=== PATIENT | female | born 1970 | race Caucasian/White ===

== ENCOUNTER 2016-04-21 16:32 | Emergency (ER) | payer OTHER ==
[~2016-04-21] VITALS: Ht 170.2 cm; Wt 91.5 kg
[~2016-04-21 16:32] MED LIST: ASPI325T45 PO; CYM30 PO; FLX/5 PO
[2016-04-21 16:38] VITALS: TEMP 36.8; Ht 170.2 cm; Wt 91.5 kg
[2016-04-21] MEDS ORDERED: CYM20 PO (17:24)
[2016-04-21] MEDS ORDERED: NAPR500T3 PO (17:24)
[2016-04-21] MEDS ORDERED: PRED50TA PO (18:02)
--- NOTE | 2016-04-21 18:02 | EMERGENCY ROOM VISIT NOTE ---
History First contact with patient: 17:04 Chief Complaint: BACK PAIN Stated Complaint: LOW RIGHT BACK/THIGH PAIN History of Present Illness The patient is a 45 year old female who presents to the Emergency Room via private vehicle with complaints of "low right back/thigh pain". She states that in January she began with pain in the right thigh region and an ache in the right leg that progressed distally to the outside ankle. She has seen Dr. Mancilla, of [facility]. The patient now states that earlier today while moving to a sitting position she developed pain in the right buttock that radiates down to the right foot. She states that she heard a snap in her lower back/thigh. She rates the pain as a 6-7/10. She has had steroid injections which have lasted 2 days for relief, and just finished a Medrol Dosepak. She has seen her family doctor who is in [place] was also provided her a steroid shot which only lasted for a few days. She has tried physical therapy with minimal relief. She notes that the right leg does feel slightly weak, but her legs have not given out on her. She is able to axial load. She denies any numbness or tingling in her genital region. She denies any bowel or bladder incontinence. Review of Systems A complete 6-point Review of Systems was discussed with the patient, with pertinent positives and negatives listed in the History of Present Illness. All remaining Review of Systems questions can be considered negative unless otherwise specified. Past Medical/Surgical History Medical Problems: (1) HTN (hypertension) (2) left foot surgery Family History Cancer Diabetes mellitus Heart disease Hypertension Lung disease Diabetes, heart disease, high blood pressure, cancer, lung disease,, but her disease, kidney disease or stones. Social History Smoking Status: Current Every Day Smoker Marital Status: in relationship Housing Status: lives with significant other Social History: Patient is currently employed, she admits to alcohol and tobacco use. Current/Historical Medications Scheduled Duloxetine HCl (Duloxetine HCl), 20 MG PO DAILY Hydrochlorothiazide (Hydrochlorothiazide), 25 MG PO DAILY Naproxen (Naproxen), 500 MG PO BID Prednisone (Prednisone), 50 MG PO DAILY Scheduled PRN Cyclobenzaprine HCl (Cyclobenzaprine HCl), 10 MG PO BID PRN for Pain Omeprazole (Prilosec), 40 MG PO DAILY PRN for Acid Reflux Oxycodone Hcl (Oxycodone Hcl), 10 MG PO TID PRN for Pain Allergies Coded Allergies: Hydromorphone (Verified Allergy, Intermediate, RASH, ITCHING, 04/21/16) Morphine (Verified Allergy, Intermediate, RASH, NAUSEA, 04/21/16) Oxycodone (Unverified Allergy, Mild, rash & nausea, 04/21/16) Physical Exam Vital Signs Date Time Temp Pulse Resp B/P Pulse Ox O2 Delivery O2 Flow Rate FiO2 04/21/16 18:05 93 18 154/121 93 Room Air 04/21/16 16:38 36.8 108 18 173/126 98 Room Air Physical Exam VITAL SIGNS - Vital signs and nursing notes were reviewed. Patient is noted to be hypertensive at 173/126. She is afebrile. She is tachycardic at a rate of 10 8 bpm. She is saturating well on room air at 98%. GENERAL -45-year-old female appearing her stated age who is in no acute distress. The patient is nontoxic in appearance. The patient is able to axial load without difficulty. Patient is standing upon my entrance in the exam room. Communicates well with provider and answers questions appropriately. SKIN - Without rashes. HEAD - NC/AT. NECK - Neck with FROM. No meningeal signs. LUNGS - Chest wall symmetric without accessory muscle use, intercostals retractions, or central cyanosis. Normal vesicular breath sounds CTA B/L. No wheezes, rales, or rhonchi appreciated. CARDIAC - RRR with S1/S2. No murmur, rubs, or gallops appreciated. ABDOMEN - Abdominal contour without pulsations or visible masses. BS normoactive all four quadrants. No tenderness, palpable masses, hepatosplenomegaly, or ascites noted. MUSCULOSKELETAL: There is reversible tenderness in the right gluteal region extending down the right thigh. This is consistent with sciatica and lumbar radiculopathy. No appreciable weakness. EXTREMITIES - No clubbing or peripheral cyanosis. No pretibial edema present. + 5/5 strength noted in UE/LE bilaterally. Patient is neurovascularly intact in her tremors. NEUROLOGIC -Sensory intact to light touch throughout. Unable to elicit bilateral reflexes. These are symmetric. PSYCH - Pt is very pleasant and interacts well with examiner. Medical Decision & Procedures Medications Administered Medications (Trade) Dose Ordered Sig/Mckenzie Route Start Time Stop Time Status Last Admin Dose Admin Prednisone (PredniSONE TAB) 50 mg NOW STAT PO 04/21/16 17:35 04/21/16 17:42 DC 04/21/16 18:03 50 MG Medical Decision Patient was seen and evaluated as above. After obtaining a thorough history and physical examination it appears that the patient's symptoms are consistent with that of lumbar radiculopathy. The patient is experiencing pain seems to run along the sciatic nerve. I believe this is likely secondary to a positional change that occurred earlier today. This seemed to be exacerbated her symptoms. I'm not able to appreciate any neurologic deficit or weakness. Nothing appears to be symmetric. There is no bowel or bladder incontinence, numbness or tingling in her genital region or appreciable leg weakness. I do not suspect any emergent or surgical nature to the patient's symptoms at this time. I would the patient is followed up in the outpatient setting but feel she may benefit from a different course of steroids. She indicated that she had pain medicine at home that was prescribed her previously that she may take. She was given one prednisone tablet here 50 mg and 4 were sent to her pharmacy. She is to take this for a total of 5 days. She is instructed to follow-up with her family doctor regarding today's visit as well as her orthopedic surgeon to schedule follow-up. I did provide her with the number for orthopedic back specialist/loan servicing specialist that she may also call to schedule follow-up. She was educated on worrisome symptoms in which to return. She was educated upon management of today's findings. She had questions answered prior to discharge and was discharged home in good condition. She did not want anything for pain while here in the emergency department as she was driving home.. She is to follow-up with her family doctor regarding her hypertensive findings. In the evaluation and treatment of this patient following differential diagnoses were entertained: Cauda equina syndrome, lumbar strain, low back pain with radiculopathy, among others. Impression Primary Impression: Back strain Additional Impression: Lumbar radiculopathy, right Departure Information Dispostion Home / Self-Care Condition GOOD Prescriptions Prednisone (Prednisone) 50 Mg Tab 50 MG PO DAILY for 4 Days, #4 TAB Prov: Leif Crespo PA-C 04/21/16 Referrals MIKE CALDERON D.O. (PCP) Rito Srinivasan, DO Patient Instructions A Signature Page, My [facility] Additional Instructions You have been treated in the Emergency Department for Back Pain. You have been prescribed Prednisone 50 mg to be taken orally once a day for the next 5 (4 day prescription) days. This is an anti-inflammatory medicine to be used to help minimize your symptoms. You should take the COMPLETE course of the medication. You may take your pain medication that has been previously prescribed. This is a narcotic medication. You cannot drive or consume alcohol while on this medicine. This medicine should only be used for pain that cannot be controlled with [id number] pain medicines. For pain control, you can use the following arxn-iof-fyjftbk medicines (if >12 yo): - Regular strength (325mg/tab) Tylenol (acetaminophen) 2 tabs every 4-6 hours as needed. Do not exceed 12 tablets in a 24 hour period. Avoid taking more than 4 grams (4000 mg) of Tylenol per day. This includes any other sources of acetaminophen you may take on a regular basis. If this is an acute injury, ice can be applied to the area of pain for the first 3 days to help decrease pain and inflammation. After the first 3 days, a heating pad can be used over the area for continued soothing relief. You should schedule a follow-up appointment in 2-3 days with your Primary Care Provider for further evaluation and treatment of your back pain. Please call your family doctor soon as possible to schedule an appointment for further evaluation and management. Please follow up with your family doctor regarding your blood pressure. It was elevated today at 173/126. I listed the number for the loan servicing specialist if your family doctor would like to send you to him. Please call this number soon as possible for further evaluation and management. Return to the Emergency Department if your current symptoms worsen despite treatment course outlined above, or if you develop any of the following symptoms : intractable pain despite aforementioned treatment course, loss of control of your bowel or bladder, numbness or tingling in your groin, or development of a fever. Please return the emergency department with any new/concerning symptoms.
[2016-04-21 18:05] VITALS: BP 154/121; PULSE 93; O2SAT 93
[2016-09-27] MEDS ORDERED: FLX10 PO (17:24)
[2016-09-27] MEDS ORDERED: OMEP40CA41 PO (17:24)
== END 2016-04-21 18:10 | disposition home or self-care (01) ==
LOC: C.EDB 16:33 → C.EDD 18:10
DX: S39.012A Strain of muscle, fascia and tendon of lower back, initial encounter (principal); M54.16 Radiculopathy, lumbar region; X50.9XXA Other and unspecified overexertion or strenuous movements or postures, initial encounter; F17.200 Nicotine dependence, unspecified, uncomplicated; I10 Essential (primary) hypertension

== ENCOUNTER → 2016-05-13 | Outpatient (CLI) | payer OTHER ==
[~2016-05-13] MED LIST changes: -ASPI325T45 PO; +CYM20 PO; -CYM30 PO; +CZR50 PO; -FLX/5 PO; +FLX10 PO; +HYDR25TA5 PO; +NAPR500T3 PO; +OMEP40CA41 PO; +OXYC-164 PO
--- NOTE | 2016-05-13 16:22 | DIAGNOSTIC IMAGING REPORT ---
LUMBAR SPINE MRI HISTORY: Right-sided sciatica. TECHNIQUE: Multiplanar multisequence MRI of the lumbar spine was performed without the use of contrast. COMPARISON: Lumbar spine 03/20/2016. FINDINGS: For the purpose of the report the L5-S1 disc space will be located on axial image of . Alignment is intact. No fracture or subluxation. Mild disc desiccation at L3-L4 and L5-S1. Mild disc space narrowing at L4-L5. The conus terminates at the L2 level. Normal marrow signal intensity seen throughout the visit osseous structures. Paraspinal soft tissues are unremarkable. L1-L2: No significant central canal or neural foraminal narrowing. L2-L3: No significant central canal or neural foraminal narrowing. L3-L4: No significant central canal or neural foraminal narrowing. L4-L5: There is a 12 x 9 mm left paracentral disc extrusion which results in severe central canal narrowing and partial compression of the cauda equina. The thecal sac measures a diameter of 3 mm at this location. There is mild bilateral neural foraminal narrowing. There are associated posterior endplate osteophytes at this level. L5-S1: No significant central canal or neural foraminal narrowing. IMPRESSION: A large left paracentral disc extrusion at L4-L5 which measures 12 x 9 mm. This results in severe central canal narrowing and partial compression of the cauda equina. There are associated posterior endplate osteophytes at this level. Electronically signed by: Danis Larsen M.D. 05/13/2016 4:20 PM Dictated Date/Time: 05/13/2016 4:12 PM
== END | disposition home or self-care (01) ==
LOC: C.MRI 14:22
PROVIDERS: ATTEND Internal Medicine
DX: M54.41 Lumbago with sciatica, right side (principal); M51.26 Other intervertebral disc displacement, lumbar region; G83.4 Cauda equina syndrome

== ENCOUNTER 2016-09-27 17:25 | Emergency (ER) | payer OTHER ==
[~2016-09-27] VITALS: Ht 170.2 cm; Wt 94.6 kg
[~2016-09-27 17:25] MED LIST changes: -CZR50 PO; -HYDR25TA5 PO; -OXYC-164 PO
[2016-09-27 17:29] VITALS: TEMP 36.5; Ht 170.2 cm; Wt 94.6 kg
[2016-09-27] MEDS ORDERED: CZR50 PO (17:46)
--- NOTE | 2016-09-27 18:10 | EMERGENCY ROOM VISIT NOTE ---
ED Visit Note First contact with patient: 17:49 CHIEF COMPLAINT: Low back pain HISTORY OF PRESENT ILLNESS: This 46-year-old female patient presents to the emergency department complaining of pain in the low back which began abruptly after she experienced a fall around 4:30 PM today. Patient states she was at work sitting in a chair that broke and she landed squarely on her buttocks, then fell backwards and hit her head. She denies loss of consciousness, headache, vision changes, nausea or vomiting, neck pain. She states immediate jolting pain in her lower back that radiates up to her middle and upper back. She states recent spinal surgery in May 2016 for a lumbar spine fracture and herniated disc repair. The pain was sudden in onset, is now constant and worse with movement. The patient notes the pain as sharp, stabbing and a 7/10. The patient has taken no medications for the pain. The patient denies any loss of control of their bowel or bladder functions. There has been no leg numbness or weakness, and no change in sensation, no difficulty ambulating. No nausea or vomiting or abdominal pain. No chest pain or shortness of breath. No dysuria or increased urinary frequency. REVIEW OF SYSTEMS: A review of systems was performed with positives and pertinent negatives listed in the history of present illness. All other systems were reviewed and are negative. ALLERGIES: See chart MEDICATIONS: See chart PMH: See chart SOCIAL HISTORY: See chart PHYSICAL EXAM: VITALS: Vitals are noted on the nurse's note and reviewed by myself. Vital signs stable. GENERAL: Pleasant and cooperative, in no acute distress, nondiaphoretic, well- developed well-nourished. SKIN: The skin was without rashes, erythema, edema, or bruising. Capillary refill less than 2 seconds. NECK: Supple without nuchal rigidity. No cervical spine tenderness. No paraspinous muscle tenderness. HEART: Regular rate and rhythm without murmurs gallops or rubs. LUNGS: Clear to auscultation bilaterally without wheezes, rales or rhonchi. ABDOMEN: Positive bowel sounds x 4. Normal tympanic percussion. Soft, nontender, without masses or organomegaly. Blood sign negative. MUSCULOSKELETAL: No muscle atrophy, erythema, or edema noted of the back. There is diffuse tenderness over the thoracic and lumbar spinous processes. There is bilateral tenderness over the paraspinous muscles from T5 extending to the sacrum. There are no muscle spasms present. The patient is slow to move around with maximum tenderness with bending or twisting. Negative straight leg raise test. NEURO: Patient was alert and oriented to person place and time. Normal sensation to light and sharp touch. Deep tendon reflexes 2+ in the lower extremities. Dorsalis pedis pulse 2+ bilaterally. Strength 5/5 and equal in the bilateral lower extremities. EMERGENCY DEPARTMENT COURSE: I examined the patient. Differential diagnosis includes strain, sprain, muscle spasm, fracture, disc herniation, subluxation, damage to surgical hardware. Given her recent surgery as well as axial load type injury with extensive midline spinal tenderness, CT imaging of the thoracic and lumbar spine was ordered. Review of CT reveals no acute fractures or other abnormalities and intact surgical hardware. Patient was given Tylenol for her pain, with reported improvement. She was instructed to follow closely with her PCP, and her surgeon as needed. She was discharged home in stable condition and ambulatory. Medication Reconciliation: I attest that I have personally reviewed the patient' s current medication list. Blood pressure screening: The patient was found to have an elevated blood pressure and was referred to their primary doctor for recheck and further treatment. Problem List Medical Problems: (1) HTN (hypertension) Status: Chronic (2) left foot surgery Status: Resolved Current/Historical Medications Scheduled Hydrochlorothiazide (Hydrochlorothiazide), 25 MG PO DAILY Losartan Potassium (Losartan Potassium), 100 MG PO DAILY Scheduled PRN Cyclobenzaprine HCl (Cyclobenzaprine HCl), 10 MG PO TID PRN for Muscle Spasm Omeprazole (Prilosec), 40 MG PO DAILY PRN for Acid Reflux Oxycodone Hcl (Oxycodone Hcl), 10 MG PO Q8 PRN for Pain Allergies Coded Allergies: Hydromorphone (Verified Allergy, Intermediate, RASH, ITCHING, 04/21/16) Morphine (Verified Allergy, Intermediate, RASH, NAUSEA, 04/21/16) Oxycodone (Unverified Allergy, Mild, rash & nausea, 04/21/16) Vital Signs Date Time Temp Pulse Resp B/P (MAP) Pulse Ox O2 Delivery O2 Flow Rate FiO2 09/27/16 20:44 93 16 150/100 99 Room Air 09/27/16 17:29 36.5 106 18 174/108 97 Room Air Medications Administered Medications (Trade) Dose Ordered Sig/Mckenzie Route Start Time Stop Time Status Last Admin Dose Admin Acetaminophen (Tylenol Tab) 1,000 mg NOW STAT PO 09/27/16 18:16 09/27/16 18:19 DC 09/27/16 18:45 1,000 MG Departure Information Impression Primary Impression: Injury of back due to fall Dispostion Home / Self-Care Condition GOOD Referrals MIKE CALDERON D.O. (PCP) Patient Instructions ED Low Back Pain Injury, [facility] Additional Instructions Apply ice for 24-48 hrs, then heat to the low back. See your own doctor or an orthopedist in 7 days if you are not improving. Ibuprofen 600 mg and Tylenol 1000 mg every 8 hours if needed for the pain. You may also take your prescribed pain medicine. Please return if any problems with bowel or bladder function or if loss of feeling or movement of your legs. Problem Qualifiers Primary Impression: Injury of back due to fall Encounter type: initial encounter Qualified Codes: S39.92XA - Unspecified injury of lower back, initial encounter; W19.XXXA - Unspecified fall, initial encounter
[2016-09-27] MEDS ORDERED: ACETAMINOPHEN 500 MG TAB PO STA (18:16)
--- NOTE | 2016-09-27 18:53 | DIAGNOSTIC IMAGING REPORT ---
CT LUMBAR SPINE WITHOUT CT DOSE: 1979.46 mGy.cm CLINICAL HISTORY: axial load injury, midline tenderness from T5-S2 FALL. TECHNIQUE: Helical images were acquired in transverse plane. Reformatted sagittal and coronal images were reviewed. CONTRAST: No contrast was administered COMPARISON STUDY: None. FINDINGS: L1-2 level: There is no evidence of significant disc bulge or focal herniation. There is no evidence of spinal or foraminal stenosis. L2-3 level: There is a mild circumferential disc bulge. There is mild spinal stenosis. There is no significant foraminal narrowing. L3-4 level: There is a mild circumferential disc bulge. There is mild spinal stenosis. There is no significant foraminal narrowing L4-5 level: There is a prominent disc osteophyte complex. There is moderate spinal stenosis. There is mild left-sided foraminal narrowing, secondary to a left-sided foraminal spurring. L5-S1 level: There is no evidence of significant disc bulge or focal herniation. There is no evidence of spinal or foraminal stenosis. No acute fractures or traumatic subluxations are visualized. IMPRESSION: 1. No acute fractures or traumatic subluxations identified 2. Mild disc bulges and mild spinal stenosis the L2-3 and L3-4 levels 3. Prominent disc osteophyte complex at the L4-5 level. Moderate spinal stenosis and mild left-sided foraminal narrowing Electronically signed by: Ravi Perea M.D. 09/27/2016 6:52 PM Dictated Date/Time: 09/27/2016 6:47 PM
--- NOTE | 2016-09-27 18:57 | DIAGNOSTIC IMAGING REPORT ---
CT THORACIC SPINE WITHOUT CT DOSE: CLINICAL HISTORY: axial load injury, midline tenderness from T5-S2 fall. TECHNIQUE: Helical images were acquired in the transverse plane. Sagittal and coronal reformatted images were acquired. COMPARISON STUDY: None. FINDINGS: There is no pathologic adenopathy within the chest. There are no pleural effusions. There is dependent atelectasis. There are mild multilevel degenerative changes within the thoracic spine. No acute fractures or traumatic subluxations are visualized. IMPRESSION: No acute fractures or traumatic subluxations identified. Electronically signed by: Ravi Perea M.D. 09/27/2016 6:56 PM Dictated Date/Time: 09/27/2016 6:53 PM
[2016-09-27 20:44] VITALS: BP 150/100; PULSE 93; O2SAT 99
[2016-09-27] MEDS ORDERED: OXYC-164 PO (21:22)
[2016-09-27] MEDS ORDERED: HYDR25TA5 PO (21:22)
== END 2016-09-27 20:51 | disposition home or self-care (01) ==
LOC: C.EDB 17:27 → C.EDD 20:51
DX: S39.92XA Unspecified injury of lower back, initial encounter (principal); W07.XXXA Fall from chair, initial encounter; Y92.89 Other specified places as the place of occurrence of the external cause; Y99.0 Civilian activity done for income or pay; I10 Essential (primary) hypertension; Z79.899 Other long term (current) drug therapy

== ENCOUNTER → 2016-10-08 | Outpatient (CLI) | payer OTHER ==
[~2016-10-08] MED LIST changes: -CYM20 PO; +CZR50 PO; +HYDR25TA5 PO; -NAPR500T3 PO; +OXYC-164 PO
[2016-10-08 18:23] LABS: BASO % 0.4 %; BASO ABS # 0.04 K/uL (0-0.2); COMPLETE YES; EOS % 3.7 %; HEMATOCRIT 45.1 % (37-47); IG% 0.2 %; LYMPH % 37.3 %; LYMPH ABS # 3.54 K/uL (1.2-3.4); MEAN CELL VOLUME 88.4 fL (80-100); MEAN CORPUSCULAR HEMOGLOBIN 31.4 pg (25-34); MEAN CORPUSCULAR HGB CONC 35.5 g/dl (32-36); MEAN PLATELET VOLUME 9.4 fL (7.4-10.4); MONO % 7.4 %; PLATELET COUNT 323 K/uL (130-400); WHITE BLOOD COUNT 9.49 K/uL (4.8-10.8)
[2016-10-08 18:44] LABS: BLOOD UREA NITROGEN 10 mg/dl (7-18); BUN/CREATININE RATIO 10.4 (10-20); CALCIUM 8.9 mg/dl (8.5-10.1); CARBON DIOXIDE 29 mmol/L (21-32); CHLORIDE 101 mmol/L (98-107); CREATININE 0.94 mg/dl (0.60-1.20); GLUCOSE 134 mg/dl (70-99); MAGNESIUM 2.3 mg/dl (1.8-2.4); POTASSIUM 2.8 mmol/L (3.5-5.1); SODIUM 138 mmol/L (136-145)
[2016-10-08 19:19] LABS: LYME DISEASE AB IGG NEG (NEG); LYME DISEASE AB IGM NEG (NEG)
== END | disposition home or self-care (01) ==
LOC: C.LAB 17:28
PROVIDERS: ATTEND Internal Medicine
DX: R53.83 Other fatigue (principal); E87.6 Hypokalemia

== ENCOUNTER → 2017-01-16 | Outpatient (CLI) | payer OTHER ==
[2017-01-16 16:28] LABS: BLOOD UREA NITROGEN 8 mg/dl (7-18); BUN/CREATININE RATIO 10.2 (10-20); CALCIUM 9.1 mg/dl (8.5-10.1); CARBON DIOXIDE 25 mmol/L (21-32); CHLORIDE 107 mmol/L (98-107); CREATININE 0.81 mg/dl (0.60-1.20); GLUCOSE 79 mg/dl (70-99); POTASSIUM 3.8 mmol/L (3.5-5.1); SODIUM 140 mmol/L (136-145)
[2017-01-16 17:42] LABS: LYME DISEASE AB IGG NEG (NEG); LYME DISEASE AB IGM NEG (NEG)
== END | disposition home or self-care (01) ==
LOC: C.LAB 15:14
PROVIDERS: ATTEND Nurse Practitioner
DX: M25.50 Pain in unspecified joint (principal); R53.83 Other fatigue; M79.1 Myalgia; E87.6 Hypokalemia

== ENCOUNTER → 2017-06-25 | Outpatient (CLI) | payer OTHER ==
[2017-06-25 21:09] LABS: HEMATOCRIT 45.3 % (37-47); HEMOGLOBIN 16.8 g/dL (12.0-16.0); MEAN CELL VOLUME 88.6 fL (80-100); MEAN CORPUSCULAR HEMOGLOBIN 32.9 pg (25-34); MEAN CORPUSCULAR HGB CONC 37.1 g/dl (32-36); MEAN PLATELET VOLUME 9.3 fL (7.4-10.4); PLATELET COUNT 298 K/uL (130-400); WHITE BLOOD COUNT 11.44 K/uL (4.8-10.8)
[2017-06-25 21:24] LABS: ALBUMIN 3.9 gm/dl (3.4-5.0); ALKALINE PHOSPHATASE 195 U/L (45-117); ALT/SGPT 73 U/L (12-78); AST/SGOT 42 U/L (15-37); BLOOD UREA NITROGEN 9 mg/dl (7-18); CARBON DIOXIDE 29 mmol/L (21-32); CREATININE 0.88 mg/dl (0.60-1.20); GLUCOSE 112 mg/dl (70-99); POTASSIUM 3.3 mmol/L (3.5-5.1); SODIUM 136 mmol/L (136-145); TOTAL PROTEIN 7.7 gm/dl (6.4-8.2)
[2017-06-25 22:11] LABS: BASO % 0.5 %; BASO ABS # 0.06 K/uL (0-0.2); EOS % 4.3 %; EOS ABS # 0.49 K/uL (0-0.5); IG# 0.02 K/uL (0.00-0.02); LYMPH % 43.8 %; LYMPH ABS # 5.01 K/uL (1.2-3.4); MONO % 5.6 %; MONO ABS # 0.64 K/uL (0.11-0.59); NEUT % 45.6 %; NEUT ABS # 5.22 K/uL (1.4-6.5)
== END | disposition home or self-care (01) ==
LOC: C.LAB 20:03
PROVIDERS: ATTEND Internal Medicine
DX: E78.5 Hyperlipidemia, unspecified (principal); I10 Essential (primary) hypertension; E55.9 Vitamin D deficiency, unspecified

== ENCOUNTER 2018-06-10 16:03 | Inpatient (IN) ==
[2018-06-10] MEDS ORDERED: POTASSIUM CHLORIDE 10 MEQ TABCR PO STA (16:18)
[2018-06-10] MEDS ORDERED: ASPIRIN CHEW 324 MG PO STA (16:18)
[2018-06-10] MEDS ORDERED: MAGNESIUM SULFATE / D5W 1 GM/100 ML BAG IV ONE (16:18)
[2018-06-10] MEDS ORDERED: SODIUM CHLORIDE 0.9% 1000ML 1,000 ML IV SCH (16:30)
--- NOTE | 2018-06-10 16:33 | XRay Report ---
XR chest 1V portable HISTORY: Atypical Chest Pain COMPARISON: None. FINDINGS: The lungs are clear. Cardiac silhouette is normal in size. No pleural effusions. No pneumot horax. IMPRESSION: No acute process. Electronically signed by: Danis Larsen M.D. 06/10/2018 4:32 PM
[2018-06-10] MEDS: POTASSIUM ACETATE 10 MEQ in 0.9 % SODIUM CHLORIDE 100 ML IV SCH ×2 (16:44→18:51)
[2018-06-10 16:50] LABS: Basophils # (auto) 0.03 K/uL (0-0.2); Basophils % (auto) 0.3 %; Eosinophils # (auto) 0.18 K/uL (0-0.5); Hematocrit (blood only) 45.6 % (37-47); Hemoglobin 16.9 g/dL (12.0-16.0); Immature Granulocytes # (auto) 0.01 K/uL (0.00-0.02); Immature Granulocytes % (auto) 0.1 %; Lymphocytes # (auto) 3.64 K/uL (1.2-3.4); Lymphocytes % (auto) 40.9 %; Mean Corpuscular Hgb Conc 37.1 g/dL (32-36); Mean Corpuscular Volume 87.2 fL (80-100); Mean Platelet Volume 9.6 fL (7.4-10.4); Monocytes # (auto) 0.62 K/uL (0.11-0.59); Neutrophils # (auto) 4.42 K/uL (1.4-6.5); Neutrophils % (auto) 49.7 %; Platelet Count 302 K/uL (130-400); RDW Coefficient of Variation 12.9 % (11.5-14.5); RDW Standard Deviation 41.2 fL (36.4-46.3); Red Blood Count 5.23 M/uL (4.2-5.4)
[2018-06-10 17:20] LABS: Alanine Aminotransferase 109 U/L (12-78); Albumin Globulin Ratio 1.1 (0.9-2); Alkaline Phosphatase 236 U/L (45-117); Aspartate Aminotransferase 43 U/L (15-37); BUN Creatinine Ratio 10.3 (10-20); Bilirubin,Total 0.5 mg/dl (0.2-1); Blood Urea Nitrogen 11 mg/dl (7-18); Calcium 8.8 mg/dl (8.5-10.1); Carbon Dioxide 30 mmol/L (21-32); Chloride 93 mmol/L (98-107); Creatinine Clr Calc Pharmacy 74.5 ml/min; Est GFR (African American) 70.6; Est GFR (Non-African American) 60.9; Globulin 3.8 gm/dl (2.5-4.0); Glucose 167 mg/dl (70-99); Magnesium 2.3 mg/dl (1.8-2.4); Potassium 2.3 mmol/L (3.5-5.1); Sodium 130 mmol/L (136-145); Total Protein 7.8 gm/dl (6.4-8.2); Troponin I < 0.015 ng/ml (0-0.045)
[2018-06-10 18:51] LABS: D Dimer 420 ug/L FEU (0-500)
--- NOTE | 2018-06-10 18:51 | History & Physical Report ---
Date of Service June 10, 2018 Assessment & Plan (1) Hypokalemia: Seems to be a chronic problem Likely secondary to use of hydrochlorothiazide to control blood pressure Potassium level is 2.3 on admission Supplemented intravenously and orally We will recheck night and tomorrow morning We will stop hydrochlorothiazide No arrhythmias noted and no EKG changes Patient was admitted to medical floor Present on Admission?: Yes (2) HTN (hypertension): Has been on hydrochlorothiazide and valsartan Will stop hydrochlorothiazide Monitor blood pressure may need to add some other medications (3) Hyperlipidemia: (4) Left foot pain: Continue current medication oxycodone We will continue the Cyclobenzaprine for muscle spasm-will continue that DVT prophylaxis SCD Increase ambulate (5) Abnormal LFTs (liver function tests): Has chronic LFTs abnormality 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 Alkaline phosphatase mildly elevated Previous a hepatitis screen has been negative History of Present Illness Chief Complaint: Generalized weakness with aches and pains since Friday last with shortness of breath on minimal exertion today Primary Care Provider: MIKE CALDERON She is a 47-year-old female with significant past medical history of hypertension, hyperlipidemia, chronic left foot pain and depression has been complaining of not feeling well for the last few days. Condition has been getting worse since Friday and she also complains to have aches and pains involving mainly the bones. She has a long history of hypokalemia likely secondary to hydrochlorothiazide which she has been continued and apparent blood test in the office today showed that potassium of 2.3 at that time she was advised to come to the emergency room, Denies any chest pain, palpitation but does have shortness of breath on minimal exertion. No abdominal pain, nausea and vomiting, no problem with urine and her bowel habit, no symptoms suggestive of any neurological origin. Allergies Allergy/AdvReac Type Severity Reaction Status Date / Time hydromorphone Allergy Intermediate RASH, Verified 06/10/18 16:43 ITCHING morphine Allergy Intermediate RASH, Verified 06/10/18 16:43 NAUSEA oxycodone Allergy Mild rash & Unverified 06/10/18 16:43 nausea Home Medications Home Medications Medication Instructions Recorded Confirmed Type atorvastatin 10 mg PO DAILY 06/10/18 06/10/18 History cyclobenzaprine 10 mg PO DAILY 06/10/18 06/10/18 History hydrochlorothiazide 25 mg PO DAILY 06/10/18 06/10/18 History naproxen 500 mg PO Q6H PRN 06/10/18 06/10/18 History omeprazole 40 mg PO DAILY 06/10/18 06/10/18 History oxycodone 10 mg PO Q8H 06/10/18 06/10/18 History penicillin V potassium 500 mg PO DIRECTED 06/10/18 06/10/18 History valsartan 320 mg PO DAILY 06/10/18 06/10/18 History venlafaxine 37.5 mg PO BID 06/10/18 06/10/18 History Past Med/Surg History Medical History Hyperlipidemia (Chronic) HTN (hypertension) (Chronic) Chronic leg pain Surgical History History of surgical procedure on mouth (Chronic) Social History Current Living Situation: Spouse and Significant Other Other Information That Helps Us Care for You: No Feels Safe at Home: Yes Safety Concerns: Feels Safe At This Time Smoking Status: Current every day smoker Tobacco Type: cigarettes Do You Dip or Chew Tobacco: No Second Hand Exposure: No Tobacco Cessation Education Requested by Patient: No Hx Alcohol Use: No Hx Substance Use: No Beliefs That Will Affect Care: None Preferred Language: Bermudian Communication Ability: Effective Review of Systems All systems reviewed & are unremarkable except as noted in HPI & below Physical Exam 2 Vital Signs (Past 24 Hours): Last Vital Signs Temp 36.7 C 06/10/18 16:07 Pulse 87 06/10/18 17:20 Resp 16 06/10/18 17:30 BP 133/90 06/10/18 17:16 Pulse Ox 94 06/10/18 18:30 Physical Exam: No apparent distress at rest Constitutional: WD/WN, vitals as above Looks depressed Eyes: PERRL, conjunctivae normal, anicteric sclerae ENMT: external ear and nose normal, oropharynx normal Neck: trachea midline, no thyromegaly Respiratory: normal respiratory effort; no respiratory distress, no labored breathing and does not use accessory muscles Cardiovascular: RRR, no murmur, no edema Rate/Rhythm: regular rate and regular rhythm Heart Sounds: normal S1 and normal S2; no murmur Gastrointestinal (Abdomen): Inspection/Auscultation: abdomen normal to inspection and normal bowel sounds Percussion/Palpation: abdomen soft Neurologic: Alert, awake and oriented x3. Generally weak Results & Data Laboratory Results Short CBC 06/10/18 Range/Units 16:37 WBC 8.90 (4.8-10.8) K/uL Hgb 16.9 H (12.0-16.0) g/dL Hct 45.6 (37-47) % Plt Count 302 (130-400) K/uL BMP 06/10/18 16:37 Sodium 130 L Potassium 2.3 L* Chloride 93 L Carbon Dioxide 30 BUN 11 Creatinine 1.07 Glucose 167 H Calcium 8.8 Cardiac Enzymes 06/10/18 Range/Units 16:37 Troponin I < 0.015 (0-0.045) ng/ml Liver Function 06/10/18 Range/Units 16:37 Total Bilirubin 0.5 (0.2-1) mg/dl AST 43 H (15-37) U/L ALT 109 H (12-78) U/L Alkaline Phosphatase 236 H (45-117) U/L Albumin 4.0 (3.4-5.0) gm/dl Code Status & VTE Plan Code Status Full VTE Prophylaxis Plan VTE Prophylaxis will be ordered: Yes
[2018-06-10] MEDS ORDERED: NSS + 20MEQ KCL 20 MEQ/1,000 ML BAG IV SCH (20:00)
[2018-06-10] MEDS: OXYCODONE HCL IR 5 MG TAB (IMMEDIATE RELEASE) PO SCH (20:51)
[2018-06-10] MEDS: PENICILLIN V POTASSIUM 500 MG TAB PO SCH (21:37)
[2018-06-10] MEDS: VENLAFAXINE HCL 37.5 MG TAB PO SCH (21:37)
[2018-06-10 22:13] LABS: BUN Creatinine Ratio 13.1 (10-20); Calcium 8.8 mg/dl (8.5-10.1); Creatinine Clr Calc Pharmacy 93.7 ml/min; Est GFR (African American) 93.3; Est GFR (Non-African American) 80.5; Potassium 2.9 mmol/L (3.5-5.1)
--- NOTE | 2018-06-10 22:38 | Emergency Department Note ---
Entered by Poornima Wagoner acting as a scribe for History of Present Illness General Chief complaint: Abnormal Labs/Diagnostic Testing Stated complaint: LOW POTASSIUM, LOW VITAMIN D Source: patient Mode of arrival: ambulatory Limitations: no limitations History of Present Illness Provider complaint: chest pain Onset (ago): day(s) 4 Location: chest Pain Consistency: + other (persistent ) Maximum Pain Intensity: 10 Current Pain Intensity: 4 Quality: + aching Relieved By: + none Exacerbated By: + none Associated symptoms: + headaches and + shortness of breath The patient is a 47 year old female who presents to the Emergency Room with complaints of a persistent chest pain that began 4 days ago. The patient describes the pain as an "ache" and notes that nothing makes the pain better or worse. She states that she has been slightly short of breath and had a but denies any jaw or arm pain. The patient also denies any swelling of calves, recent trips or surgeries, history of immobilization, prior history of DVT, hemoptysis, heart disease malignancy or diabetes, but reports that she has a history of hypertension, and hyperlipidemia. The patient admits to tobacco use. She also notes that she has had similar symptoms in the past and was told it was secondary to low potassium and vitamin D levels. Home Medications Home Medications Medication Instructions Recorded Confirmed Type atorvastatin 10 mg PO DAILY 06/10/18 06/10/18 History cyclobenzaprine 10 mg PO DAILY 06/10/18 06/10/18 History hydrochlorothiazide 25 mg PO DAILY 06/10/18 06/10/18 History naproxen 500 mg PO Q6H PRN 06/10/18 06/10/18 History omeprazole 40 mg PO DAILY 06/10/18 06/10/18 History oxycodone 10 mg PO Q8H 06/10/18 06/10/18 History penicillin V potassium 500 mg PO DIRECTED 06/10/18 06/10/18 History valsartan 320 mg PO DAILY 06/10/18 06/10/18 History venlafaxine 37.5 mg PO BID 06/10/18 06/10/18 History Allergies Allergy/AdvReac Type Severity Reaction Status Date / Time hydromorphone Allergy Intermediate RASH, Verified 06/10/18 16:43 ITCHING morphine Allergy Intermediate RASH, Verified 06/10/18 16:43 NAUSEA oxycodone Allergy Mild rash & Unverified 06/10/18 16:43 nausea Past Med/Surg History Medical History Hyperlipidemia (Chronic) HTN (hypertension) (Chronic) Chronic leg pain Surgical History History of surgical procedure on mouth (Chronic) Social History Current Living Situation: Spouse and Significant Other Other Information That Helps Us Care for You: No Feels Safe at Home: Yes Safety Concerns: Feels Safe At This Time Smoking Status: Current every day smoker Tobacco Type: cigarettes Do You Dip or Chew Tobacco: No Second Hand Exposure: No Tobacco Cessation Education Requested by Patient: No Hx Alcohol Use: No Hx Substance Use: No Beliefs That Will Affect Care: None Preferred Language: Tunisian Communication Ability: Effective Review of Systems See HPI for pertinent positives & negatives. and A total of 10 systems reviewed and were otherwise negative Physical Exam Vital Signs Vital Signs - 24 hr 06/10/18 16:07 06/10/18 16:48 06/10/18 16:55 Temperature 36.7 C Temperature Source Oral Sepsis Recent Fever Within 48 Hours No Sepsis New/Unexplained Change in Mental Status No Sepsis Action Taken by Nursing No Action Required Pulse Rate 102 H 85 Pulse Rate [Right Finger] Pulse Rate from SpO2 Sensor 84 Pulse Rhythm Regular Pulse Rhythm [Right Finger] Pulse Strength Normal Pulse Strength [Right Finger] Respiratory Rate 20 23 Respiratory Effort / Characteristics Non-Labored Spontaneous Respiratory Depth Normal Respiratory Pattern Regular Blood Pressure 119/79 Blood Pressure [Right Arm] Blood Pressure Mean 92 Blood Pressure Mean [Right Arm] Blood Pressure Position Sitting Blood Pressure Position [Right Arm] Pulse Oximetry 95 99 98 Oxygen Delivery Method Room Air Non-rebreather Oxygen Flow Rate 15 06/10/18 17:00 06/10/18 17:10 06/10/18 17:16 Temperature Temperature Source Sepsis Recent Fever Within 48 Hours Sepsis New/Unexplained Change in Mental Status Sepsis Action Taken by Nursing Pulse Rate 86 93 H 86 Pulse Rate [Right Finger] 87 Pulse Rate from SpO2 Sensor 83 83 84 Pulse Rhythm Pulse Rhythm [Right Finger] Regular Pulse Strength Pulse Strength [Right Finger] Normal Respiratory Rate 33 H 35 H 19 Respiratory Effort / Characteristics Non-Labored Respiratory Depth Normal Respiratory Pattern Regular Blood Pressure 133/90 Blood Pressure [Right Arm] 133/90 Blood Pressure Mean 104 Blood Pressure Mean [Right Arm] 104 Blood Pressure Position Blood Pressure Position [Right Arm] Lying Pulse Oximetry 97 97 100 Oxygen Delivery Method Non-rebreather Oxygen Flow Rate 15 06/10/18 17:20 06/10/18 17:30 06/10/18 17:40 Temperature Temperature Source Sepsis Recent Fever Within 48 Hours Sepsis New/Unexplained Change in Mental Status Sepsis Action Taken by Nursing Pulse Rate 87 Pulse Rate [Right Finger] Pulse Rate from SpO2 Sensor 79 74 77 Pulse Rhythm Pulse Rhythm [Right Finger] Pulse Strength Pulse Strength [Right Finger] Respiratory Rate 20 16 Respiratory Effort / Characteristics Respiratory Depth Respiratory Pattern Blood Pressure Blood Pressure [Right Arm] Blood Pressure Mean Blood Pressure Mean [Right Arm] Blood Pressure Position Blood Pressure Position [Right Arm] Pulse Oximetry 99 99 95 Oxygen Delivery Method Oxygen Flow Rate 06/10/18 17:51 06/10/18 18:00 06/10/18 18:10 Temperature Temperature Source Sepsis Recent Fever Within 48 Hours Sepsis New/Unexplained Change in Mental Status Sepsis Action Taken by Nursing Pulse Rate Pulse Rate [Right Finger] Pulse Rate from SpO2 Sensor 87 79 91 H Pulse Rhythm Pulse Rhythm [Right Finger] Pulse Strength Pulse Strength [Right Finger] Respiratory Rate Respiratory Effort / Characteristics Respiratory Depth Respiratory Pattern Blood Pressure Blood Pressure [Right Arm] Blood Pressure Mean Blood Pressure Mean [Right Arm] Blood Pressure Position Blood Pressure Position [Right Arm] Pulse Oximetry 96 92 95 Oxygen Delivery Method Oxygen Flow Rate 06/10/18 18:20 06/10/18 18:30 06/10/18 19:02 Temperature Temperature Source Sepsis Recent Fever Within 48 Hours Sepsis New/Unexplained Change in Mental Status Sepsis Action Taken by Nursing Pulse Rate Pulse Rate [Right Finger] 75 Pulse Rate from SpO2 Sensor 77 76 Pulse Rhythm Pulse Rhythm [Right Finger] Pulse Strength Pulse Strength [Right Finger] Respiratory Rate 18 Respiratory Effort / Characteristics Non-Labored Respiratory Depth Normal Respiratory Pattern Blood Pressure Blood Pressure [Right Arm] 109/78 Blood Pressure Mean Blood Pressure Mean [Right Arm] 88 Blood Pressure Position Blood Pressure Position [Right Arm] Pulse Oximetry 96 94 95 Oxygen Delivery Method Room Air Oxygen Flow Rate 06/10/18 19:33 06/10/18 19:51 Temperature Temperature Source Sepsis Recent Fever Within 48 Hours Sepsis New/Unexplained Change in Mental Status Sepsis Action Taken by Nursing Pulse Rate 73 Pulse Rate [Right Finger] 88 Pulse Rate from SpO2 Sensor Pulse Rhythm Pulse Rhythm [Right Finger] Pulse Strength Pulse Strength [Right Finger] Respiratory Rate 17 18 Respiratory Effort / Characteristics Respiratory Depth Normal Respiratory Pattern Blood Pressure 127/79 Blood Pressure [Right Arm] Blood Pressure Mean Blood Pressure Mean [Right Arm] Blood Pressure Position Blood Pressure Position [Right Arm] Pulse Oximetry 95 96 Oxygen Delivery Method Room Air Room Air Oxygen Flow Rate GENERAL: Sitting up in bed, alert, well appearing, well nourished, no distress, non-toxic EYE EXAM: normal conjunctiva. OROPHARYNX: no exudate, no erythema, lips, buccal mucosa, and tongue normal and mucous membranes are moist NECK: supple, no nuchal rigidity, no adenopathy, non-tender LUNGS: Clear to auscultation. Normal chest wall mechanics HEART: no murmurs, S1 normal and S2 normal, tachycardic. ABDOMEN: abdomen soft, non-tender, normo-active bowel, sounds, no masses, no rebound or guarding. BACK: Back is symmetrical on inspection and there is no deformity, no midline tenderness, no CVA tenderness. SKIN: no rashes and no bruising UPPER EXTREMITIES: upper extremities are grossly normal. LOWER EXTREMITIES: No pitting edema. Caves are equal bilaterally. NEURO EXAM: Normal sensorium, cranial nerves II-XII grossly intact, normal speech, no gross weakness of arms, no gross weakness of legs. Course ED COURSE: Vital signs were reviewed and the patient was tachycardic. The patients medical record was reviewed The above diagnostic studies were performed and reviewed. ED treatments and interventions as stated above. 1612: The patient was evaluated in room C9. A complete history and physical examination was performed. 1736: The patient was updated. 1750: Upon reevaluation, the patient appeared to have improvement of her symptoms. I discussed my findings with the patient and she understands and agrees with the treatment plan. Based on the patients age, coexisting illnesses, exam and lab findings the decision to treat as an inpatient was made. The patient remained stable while under my care. The patient will be evaluated for further management. Administered Medications Potassium Chloride/Sodium Chloride (Normal Saline W/20 Meq Kcl) 20 meq in 1, 000 mls @ 75 mls/hr IV .[id number] [facility] Stop: 06/11/18 22:39 Last Admin: 06/10/18 20:51 Dose: 75 mls/hr Oxycodone HCl (Roxicodone Immediate Rel) 10 mg PO Q8H [facility] Stop: 06/24/18 20:18 Last Admin: 06/10/18 20:51 Dose: 10 mg Penicillin V Potassium (Veetids) 500 mg PO Q6 [facility] Stop: 06/17/18 17:59 Last Admin: 06/10/18 21:37 Dose: 500 mg Venlafaxine HCl (Effexor) 37.5 mg PO BID KATHERINE Stop: 07/10/18 20:59 Last Admin: 06/10/18 21:37 Dose: 37.5 mg Discontinued Medications Aspirin (Aspirin) 324 mg PO NOW STA Stop: 06/10/18 16:19 Last Admin: 06/10/18 16:41 Dose: 324 mg Magnesium Sulfate/Dextrose (Magnesium Sulfate / D5w) 1 gm in 100 mls @ 100 mls/ hr IV ONE ONE Stop: 06/10/18 17:17 Last Infusion: 06/10/18 17:54 Dose: Admin: 06/10/18 16:40 Dose: 100 mls/hr Potassium Acetate 10 meq/ (Sodium Chloride) 105 mls @ 105 mls/hr IV Q1H KATHERINE Stop: 06/10/18 18:29 Last Infusion: 06/10/18 20:10 Dose: 0 mls/hr Admin: 06/10/18 18:51 Dose: 105 mls/hr Infusion: 06/10/18 17:44 Dose: 105 mls/hr Admin: 06/10/18 16:44 Dose: 105 mls/hr Sodium Chloride (Nss 1000ml) 1,000 mls @ 999 mls/hr IV .Q1H1M KATHERINE Stop: 06/10/18 17:30 Last Infusion: 06/10/18 20:10 Dose: 0 mls/hr Admin: 06/10/18 17:54 Dose: 999 mls/hr Potassium Chloride (Klor-Con M10) 40 meq PO NOW STA Stop: 06/10/18 16:19 Last Admin: 06/10/18 16:41 Dose: 40 meq Medical Decision Making Differential Diagnosis Differential diagnoses includes but is not limited to: GERD, esophageal spasm, cholecystitis, acute coronary syndrome, myocardial infarction, pericarditis, pulmonary embolus, aortic dissection, pneumonia, pneumothorax, and musculoskeletal, shingles. Medical Records Attestation: I reviewed the patient's medical records. Home Medications Current Medication List: was personally reviewed by me Laboratory Data Attestation: I reviewed the patient's lab results. Result diagrams: 06/10/18 16:37 06/10/18 21:43 Lab Results 06/10/18 06/10/18 06/10/18 Range/Units 16:37 16:37 16:37 WBC 8.90 (4.8-10.8) K/uL RBC 5.23 (4.2-5.4) M/uL Hgb 16.9 H (12.0-16.0) g/dL Hct 45.6 (37-47) % MCV 87.2 (80-100) fL MCH 32.3 (25-34) pg MCHC 37.1 H (32-36) g/dL RDW Std Deviation 41.2 (36.4-46.3) fL RDW Coeff of Myla 12.9 (11.5-14.5) % Plt Count 302 (130-400) K/uL MPV 9.6 (7.4-10.4) fL Immature Gran % (Auto) 0.1 % Neut % (Auto) 49.7 % Lymph % (Auto) 40.9 % Mcclain % (Auto) 7.0 % Eos % (Auto) 2.0 % Baso % (Auto) 0.3 % Immature Gran # (Auto) 0.01 (0.00-0.02) K/uL Neut # (Auto) 4.42 (1.4-6.5) K/uL Lymph # (Auto) 3.64 H (1.2-3.4) K/uL Mcclain # (Auto) 0.62 H (0.11-0.59) K/uL Eos # (Auto) 0.18 (0-0.5) K/uL Baso # (Auto) 0.03 (0-0.2) K/uL D-Dimer 420 (0-500) ug/L FEU Carboxyhemoglobin % THgb Sodium 130 L (136-145) mmol/L Potassium 2.3 L* (3.5-5.1) mmol/L Chloride 93 L (98-107) mmol/L Carbon Dioxide 30 (21-32) mmol/L Anion Gap 7.0 (3-11) BUN 11 (7-18) mg/dl Creatinine 1.07 (0.6-1.2) mg/dl Est Cr Clr Drug Dosing 74.5 ml/min Est GFR ( Amer) 70.6 Est GFR (Non-Af Amer) 60.9 BUN/Creatinine Ratio 10.3 (10-20) Glucose 167 H (70-99) mg/dl Calcium 8.8 (8.5-10.1) mg/dl Magnesium 2.3 (1.8-2.4) mg/dl Total Bilirubin 0.5 (0.2-1) mg/dl AST 43 H (15-37) U/L ALT 109 H (12-78) U/L Alkaline Phosphatase 236 H (45-117) U/L Troponin I < 0.015 (0-0.045) ng/ml Total Protein 7.8 (6.4-8.2) gm/dl Albumin 4.0 (3.4-5.0) gm/dl Globulin 3.8 (2.5-4.0) gm/dl Albumin/Globulin Ratio 1.1 (0.9-2) Lipase 146 (73-393) U/L 06/10/18 06/10/18 Range/Units 17:00 21:43 WBC (4.8-10.8) K/uL RBC (4.2-5.4) M/uL Hgb (12.0-16.0) g/dL Hct (37-47) % MCV (80-100) fL MCH (25-34) pg MCHC (32-36) g/dL RDW Std Deviation (36.4-46.3) fL RDW Coeff of Myla (11.5-14.5) % Plt Count (130-400) K/uL MPV (7.4-10.4) fL Immature Gran % (Auto) % Neut % (Auto) % Lymph % (Auto) % Mcclain % (Auto) % Eos % (Auto) % Baso % (Auto) % Immature Gran # (Auto) (0.00-0.02) K/uL Neut # (Auto) (1.4-6.5) K/uL Lymph # (Auto) (1.2-3.4) K/uL Mcclain # (Auto) (0.11-0.59) K/uL Eos # (Auto) (0-0.5) K/uL Baso # (Auto) (0-0.2) K/uL D-Dimer (0-500) ug/L FEU Carboxyhemoglobin 9.8 % THgb Sodium 132 L (136-145) mmol/L Potassium 2.9 L D (3.5-5.1) mmol/L Chloride 96 L (98-107) mmol/L Carbon Dioxide 29 (21-32) mmol/L Anion Gap 7.0 (3-11) BUN 11 (7-18) mg/dl Creatinine 0.85 (0.6-1.2) mg/dl Est Cr Clr Drug Dosing 93.7 ml/min Est GFR ( Amer) 93.3 Est GFR (Non-Af Amer) 80.5 BUN/Creatinine Ratio 13.1 (10-20) Glucose 154 H (70-99) mg/dl Calcium 8.8 (8.5-10.1) mg/dl Magnesium (1.8-2.4) mg/dl Total Bilirubin (0.2-1) mg/dl AST (15-37) U/L ALT (12-78) U/L Alkaline Phosphatase (45-117) U/L Troponin I (0-0.045) ng/ml Total Protein (6.4-8.2) gm/dl Albumin (3.4-5.0) gm/dl Globulin (2.5-4.0) gm/dl Albumin/Globulin Ratio (0.9-2) Lipase (73-393) U/L Imaging Data Radiologist's Impression: Radiology results as stated below per my review and the radiologist's interpretation: XR chest 1V portable HISTORY: Atypical Chest Pain COMPARISON: None. FINDINGS: The lungs are clear. Cardiac silhouette is normal in size. No pleural effusions. No pneumothorax. IMPRESSION: No acute process. Electronically signed by: Danis Larsen M.D. 06/10/2018 4:32 PM ECG Data Attestation: I personally reviewed and interpreted this ECG as follows: Indication: chest pain Rate (beats per minute): 96 Rhythm: sinus rhythm Findings: + nonspecific-ST abn (inferiorly) and + PVC Comparison ECG Date: from (18-SEP-2011) Change: no significant change Blood Pressure Blood Pressure Findings: Normal blood pressure Blood Pressure Disposition: further management by hospitalist MIKE Narrative Patient is a 47-year-old female who presents the ER for chest pain which is been present for the past several days associated with blood work that shows hypokalemia. He does complain of diffuse muscle weakness associated with this. Vitals were unremarkable. Labs were obtained and showed no significant leukocytosis or anemia. D-dimer was negative. Potassium was low at 2.3. Magnesium was normal. Faint transaminitis. Troponin was negative. EKG unremarkable. EKG did have diffuse ST wave changes in the inferior which appear to be slightly worse than baseline I do attribute this to the hyperkalemia. Patient was updated bedside. Nothing to suggest ischemia as chest pain has been present for greater than 8 hours with a negative troponin. Patient was updated bedside. She was given oral potassium along with IV potassium and IV magnesium. She was given aspirin as well. She was updated admitted to the hospitalist for further workup. Impression & Plan Chest pain, Hypokalemia, Weak Discharge Plan Visit Data *Final* Discharge Date/Time: 06/10/18 19:51 Chief Complaint: Abnormal Labs/Diagnostic Testing Stated Complaint: LOW POTASSIUM, LOW VITAMIN D ED Provider: Solomon Payton Discharge Problem: Chest pain, Hypokalemia, Weak Patient Disposition: Admitted As Inpatient Discharge Instructions Interventions: ED Discharge Assessment Last Done: 06/10/18 19:51 The scribe's documentation has been prepared under my direction and personally reviewed by me in its entirety. I confirm that the note above accurately reflects all work, treatment, procedures, and medical decision making performed by me.
[2018-06-11] MEDS: PENICILLIN V POTASSIUM 500 MG TAB PO SCH ×3 (00:31→11:36)
[2018-06-11] MEDS: OXYCODONE HCL IR 5 MG TAB (IMMEDIATE RELEASE) PO SCH ×2 (04:11→12:22)
[2018-06-11 07:34] LABS: BUN Creatinine Ratio 12.3 (10-20); Calcium 8.9 mg/dl (8.5-10.1); Creatinine Clr Calc Pharmacy 95.9 ml/min; Est GFR (Non-African American) 82.8; Potassium 3.1 mmol/L (3.5-5.1)
[2018-06-11] MEDS ORDERED: POTASSIUM CHLORIDE 20 MEQ TABCR PO STA (07:39)
[2018-06-11] MEDS: VENLAFAXINE HCL 37.5 MG TAB PO SCH (07:48)
[2018-06-11] MEDS: CYCLOBENZAPRINE HCL 10 MG TAB PO SCH ×2 (07:49→07:51)
[2018-06-11 07:50] LABS: Estimated Average Glucose 146 mg/dl
[2018-06-11] MEDS: POTASSIUM CHLORIDE / WTR 10 MEQ/100 ML PLCT IV SCH ×2 (08:25→10:15)
[2018-06-11] MEDS ORDERED: CHOLECALCIFEROL 1,000 UNITS TAB PO SCH (09:00)
[2018-06-11] MEDS ORDERED: ATORVASTATIN 10 MG TAB PO SCH (09:00)
[2018-06-11] MEDS ORDERED: VALSARTAN 80 MG TAB PO SCH (09:00)
[2018-06-11] MEDS ORDERED: PANTOprazole 40 MG TAB PO SCH (09:00)
[2018-06-11 11:10] LABS: BUN Creatinine Ratio 12.8 (10-20); Calcium 8.3 mg/dl (8.5-10.1); Est GFR (African American) 112.1; Est GFR (Non-African American) 96.7; Magnesium 2.5 mg/dl (1.8-2.4); Phosphorus 2.7 mg/dl (2.5-4.9); Potassium 3.6 mmol/L (3.5-5.1)
--- NOTE | 2018-06-11 12:52 | Hospitalist Progress Note ---
Date of Service June 11, 2018 Assessment & Plan (1) Hypokalemia: Seems to be a chronic problem Likely secondary to use of hydrochlorothiazide to control blood pressure Potassium level is 2.3 on admission Supplemented intravenously and orally We will recheck night and tomorrow morning We will stop hydrochlorothiazide No arrhythmias noted and no EKG changes Patient was admitted to medical floor Potassium normalized She will be discharged home today (2) HTN (hypertension): Has been on hydrochlorothiazide and valsartan Will stop hydrochlorothiazide Monitor blood pressure may need to add some other medications Blood pressure is maintained with respiratory No more hydrochlorothiazide (3) Hyperlipidemia: (4) Left foot pain: Continue current medication oxycodone We will continue the Cyclobenzaprine for muscle spasm-will continue that DVT prophylaxis SCD Increase ambulate (5) Abnormal LFTs (liver function tests): Has chronic LFTs abnormality 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 Alkaline phosphatase mildly elevated Previous a hepatitis screen has been negative Discharge home today Subjective She is a 47-year-old female with significant past medical history of hypertension, hyperlipidemia, chronic left foot pain and depression has been complaining of not feeling well for the last few days. 06/10 Has been feeling a lot better Wants to go home Physical Exam 2 Vital Signs (Past 24 Hours): Last Vital Signs Temp 36.5 C 06/11/18 08:11 Pulse 82 06/11/18 08:11 Resp 18 06/11/18 08:11 BP 117/81 06/11/18 08:11 Pulse Ox 95 06/11/18 08:11 Constitutional: WD/WN, vitals as above Eyes: PERRL, conjunctivae normal, anicteric sclerae ENMT: external ear and nose normal, oropharynx normal Neck: trachea midline, no thyromegaly Respiratory: normal respiratory effort; no respiratory distress, no labored breathing and does not use accessory muscles Cardiovascular: RRR, no murmur, no edema Rate/Rhythm: regular rate and regular rhythm Heart Sounds: normal S1 and normal S2; no murmur Gastrointestinal (Abdomen): Inspection/Auscultation: abdomen normal to inspection and normal bowel sounds Percussion/Palpation: abdomen soft Neurologic: Alert, awake and oriented x3 Results & Data Laboratory Results [facility] 06/10/18 06/11/18 06/11/18 21:43 06:14 10:33 Sodium 132 L 136 136 Potassium 2.9 L D 3.1 L 3.6 D Chloride 96 L 100 103 Carbon Dioxide 29 28 27 BUN 11 10 9 Creatinine 0.85 0.83 0.73 Glucose 154 H 131 H 125 H Calcium 8.8 8.9 8.3 L 06/11/18 10:33 Sodium Cancelled Potassium Cancelled Chloride Cancelled Carbon Dioxide Cancelled BUN Cancelled Creatinine Cancelled Glucose Cancelled Calcium Cancelled
--- NOTE | 2018-06-12 08:39 | Discharge Summary ---
Date of Service June 12, 2018 Admission HPI Per Admitting Provider She is a 47-year-old female with significant past medical history of hypertension, hyperlipidemia, chronic left foot pain and depression has been complaining of not feeling well for the last few days. Condition has been getting worse since Friday and she also complains to have aches and pains involving mainly the bones. She has a long history of hypokalemia likely secondary to hydrochlorothiazide which she has been continued and apparent blood test in the office today showed that potassium of 2.3 at that time she was advised to come to the emergency room, Denies any chest pain, palpitation but does have shortness of breath on minimal exertion. No abdominal pain, nausea and vomiting, no problem with urine and her bowel habit, no symptoms suggestive of any neurological origin. Admission Exam Per Admitting Provider Vital Signs (Past 24 Hours): Last Vital Signs Temp 36.7 C 06/10/18 16:07 Pulse 87 06/10/18 17:20 Resp 16 06/10/18 17:30 BP 133/90 06/10/18 17:16 Pulse Ox 94 06/10/18 18:30 Physical Exam: No apparent distress at rest Constitutional: WD/WN, vitals as above Looks depressed Eyes: PERRL, conjunctivae normal, anicteric sclerae ENMT: external ear and nose normal, oropharynx normal Neck: trachea midline, no thyromegaly Respiratory: normal respiratory effort; no respiratory distress, no labored breathing and does not use accessory muscles Cardiovascular: RRR, no murmur, no edema Rate/Rhythm: regular rate and regular rhythm Heart Sounds: normal S1 and normal S2; no murmur Gastrointestinal (Abdomen): Inspection/Auscultation: abdomen normal to inspection and normal bowel sounds Percussion/Palpation: abdomen soft Neurologic: Alert, awake and oriented x3. Generally weak Principal Diagnosis Hypokalemia-likely secondary to use of HCTZ, generalized weakness, hypertension Discharge Exam Constitutional WD/WN, vitals as above Eyes PERRL, conjunctivae normal, anicteric sclerae ENMT external ear and nose normal, oropharynx normal Neck trachea midline, no thyromegaly Respiratory normal respiratory effort; no respiratory distress, no labored breathing and does not use accessory muscles Cardiovascular RRR, no murmur, no edema Rate/Rhythm: regular rate and regular rhythm Heart Sounds: normal S1 and normal S2; no murmur Gastrointestinal (Abdomen) Inspection/Auscultation: abdomen normal to inspection and normal bowel sounds Percussion/Palpation: abdomen soft Discharge Data Allergies Allergy/AdvReac Type Severity Reaction Status Date / Time hydromorphone Allergy Intermediate RASH, Verified 06/10/18 16:43 ITCHING morphine Allergy Intermediate RASH, Verified 06/10/18 16:43 NAUSEA oxycodone Allergy Mild rash & Unverified 06/10/18 16:43 nausea Consultations 06/10/18 17:54 ED Decision to Admit Stat Hospital Course (1) Hypokalemia: Seems to be a chronic problem Likely secondary to use of hydrochlorothiazide to control blood pressure Potassium level is 2.3 on admission Supplemented intravenously and orally We will recheck night and tomorrow morning We will stop hydrochlorothiazide No arrhythmias noted and no EKG changes Patient was admitted to medical floor Potassium normalized She will be discharged home today (2) HTN (hypertension): Has been on hydrochlorothiazide and valsartan Will stop hydrochlorothiazide Monitor blood pressure may need to add some other medications Blood pressure is maintained with respiratory No more hydrochlorothiazide (3) Hyperlipidemia: (4) Left foot pain: Continue current medication oxycodone We will continue the Cyclobenzaprine for muscle spasm-will continue that DVT prophylaxis SCD Increase ambulate (5) Abnormal LFTs (liver function tests): Has chronic LFTs abnormality 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 Alkaline phosphatase mildly elevated Previous a hepatitis screen has been negative Discharge home today Total Time Total Time Spent Total Time Spent (In Minutes): 35 minutes Total Time Includes: Examination of the Patient, Discharge Planning, Medication Reconciliation and Communication With Other Providers Discharge Plan Discharge Items Patient Disposition: Home - Self-Care Reason For Visit: HYPOKALEMIA,WEAKNESS Discharge Diagnosis: Hypokalemia-likely secondary to use of HCTZ, generalized weakness, hypertension Condition: Good Discharge Goals: Decrease discomfort, Improve disease control and Improve function Activity: Resume your previous activity Activity Comment: Can go back to work on Friday, 15 June. Non-emergency contact: Primary Care Provider Call non-emergency contact if: you have any medication questions and your symptoms worsen Follow-up/Referrals: MIKE CALDERON D.O. [Primary Care Provider] - (Please make an appointment with your primary care for the physician within 1 week) Diet: Heart Healthy and Low Sodium (2gm) Addtl Provider Instructions: Do not take any more hydrochlorothiazide Prescriptions: New cholecalciferol (vitamin D3) [Vitamin D3] 1,000 unit Tablet 1,000 unit PO QAM 30 Days Qty: 30 RF: 0 Continue atorvastatin 10 mg tablet 10 mg PO DAILY RF: 0 penicillin V potassium 500 mg tablet 500 mg PO DIRECTED RF: 0 omeprazole 40 mg capsule,delayed release(DR/EC) 40 mg PO DAILY RF: 0 venlafaxine 37.5 mg tablet 37.5 mg PO BID RF: 0 valsartan 320 mg tablet 320 mg PO DAILY RF: 0 oxycodone 10 mg tablet 10 mg PO Q8H RF: 0 cyclobenzaprine 10 mg tablet 10 mg PO DAILY RF: 0 Discontinued hydrochlorothiazide 25 mg tablet 25 mg PO DAILY RF: 0 naproxen 500 mg tablet 500 mg PO Q6H PRN (Reason: Pain) RF: 0 Stand-Alone Forms: [facility] Discharge Orders: Discharge Order (Routine); Ordered 06/11/18 Ordered By: Nadia Hernandez Admission Data Admit Date/Time: 06/10/18 18:58 Attending Provider: Nadia Hernandez Admit Provider: Nadia Hernandez Primary Care Provider: MIKE CALDERON Other Providers: Anoop Donis Service: Medical Other Interventions: Discharge Summary Assessment (RN) Last Done: 06/11/18 12:58 DC Date/Time DO NOT enter until pt leaves facility: 06/11/18 13:10
== END 2018-06-11 13:10 | disposition home or self-care (01) | DRG 641 ==
LOC: ED 16:03 → 4W 18:58